=== PATIENT | male | born 1990 | race Caucasian/White ===

== ENCOUNTER 2021-01-23 03:48 | Emergency (ER) | payer MEDICAID ==
[~2021-01-23] VITALS: Ht 172.7 cm; Wt 71.7 kg
[2021-01-23] MEDS ORDERED: HYDROcodone-ACET 10/325MG TAB PO ONE (04:30)
[2021-01-23 05:15] VITALS: BP 123/78
[2021-01-23] MEDS ORDERED: MORPHINE SULFATE INJECTION 2 MG/ML SYRG IM ONE (06:30)
[2021-01-23] MEDS ORDERED: ONDANSETRON ODT 4 MG TAB PO ONE (06:30)
== END 2021-01-23 17:17 | disposition home or self-care (01) ==
LOC: ER 03:48
DX: S92.002A Unspecified fracture of left calcaneus, initial encounter for closed fracture (principal); W11.XXXA Fall on and from ladder, initial encounter; Y93.89 Activity, other specified; Y92.89 Other specified places as the place of occurrence of the external cause; Y99.8 Other external cause status
CPT/HCPCS: 29515; 72100; 73562; 73610; 73700; 96372; 99284; J2270; Q0162